=== PATIENT | male | born 1945 | race Two or more races ===

== ENCOUNTER 2025-03-16 10:45 | Inpatient (IN) | payer OTHER ==
[~2025-03-16] VITALS: Ht 170.2 cm; Wt 96.2 kg
--- NOTE | 2025-03-16 11:23 | NUR ---
PTE ALERTA Y ORIENTADO X3, LLEGA CON ORDENES DE ADMISION DIRECTAS PARA SER ADMITIDO POR ANEMIA, BAJO LOS SERVICIOS DEL . SE NELA SV Y SE UBICA
[2025-03-16] MEDS ORDERED: ATORVASTATIN CA10 MG PO (11:24)
[2025-03-16] MEDS ORDERED: KAPSPARGO SPRIN25 MG (11:24)
[2025-03-16] MEDS ORDERED: METFORMIN HCL500 MG (11:25)
[2025-03-16] MEDS ORDERED: QBRELIS1 MG/1 ML (11:25)
[2025-03-16] MEDS ORDERED: AMLODIPINE-OLM1 EAC2 (11:25)
[2025-03-16] MEDS ORDERED: CAROSPIR25 MG/5 ML PO (11:25)
[2025-03-16] MEDS ORDERED: FAMOTIDINE/PF 20 MG/2 ML VIAL IV PUSH SCH (12:30)
[2025-03-16] MEDS ORDERED: AMLODIPINE BESYLATE 10 MG TABLET PO SCH (12:31)
[2025-03-16] MEDS ORDERED: LISINOPRIL 40 MG TABLET PO SCH (12:31)
[2025-03-16] MEDS ORDERED: SPIRONOLACTONE 25 MG TABLET PO SCH (12:32)
[2025-03-16] MEDS ORDERED: METOPROLOL SUCCINATE 25 MG TAB.SR.24H PO SCH (12:32)
[2025-03-16] MEDS ORDERED: hydrALAZINE HCL 20 MG VIAL IV PRN (12:45)
[2025-03-16] MEDS ORDERED: INSULIN LISPRO 1,000 UNIT/10 ML UNITS SUBCUTANEO PRN (12:45)
[2025-03-16] MEDS ORDERED: ACETAMINOPHEN 500 MG GEL..CAP PO PRN (12:45)
[2025-03-16] MEDS ORDERED: FAMOTIDINE/PF 20 MG/2 ML VIAL ONE (13:35)
[2025-03-16 13:39] LABS: BASO % 0.8 % (0.1-1.2); EOS # 0.32 (0.04-0.54); EOS % 4.1 % (0.7-7.0); LYMPH # 1.74 (1.18-3.74); LYMPH % 22.5 % (19.3-53.1); MEAN PLATELET VOLUME 9.90 fl (9.4-12.4); MONO # 0.86 (0.24-0.82); MONO % 11.1 % (4.7-12.5); NEUT # 4.71 (1.56-6.13); NEUT % 61.1 % (34.0-71.1); RED CELL DISTRIBUTION WIDTH 20.9 % (11.6-14.4)
[2025-03-16 14:24] LABS: COVID-19 AG NEGATIVE (NEGATIVE)
[2025-03-16 15:00] VITALS: BP 146/71; O2SAT 96
[2025-03-16] MEDS ORDERED: ATORVASTATIN CALCIUM 40 MG TABLET PO SCH (17:00)
[2025-03-16 17:27] VITALS: BP 154/71; O2SAT 97
[2025-03-17 03:17] VITALS: BP 126/66; O2SAT 95
[2025-03-17 08:00] VITALS: BP 147/80; O2SAT 99
[2025-03-17 16:00] VITALS: BP 130/70; O2SAT 97
[2025-03-17 23:20] LABS: BASO % 0.8 % (0.1-1.2); EOS # 0.38 (0.04-0.54); EOS % 4.5 % (0.7-7.0); LYMPH # 1.62 (1.18-3.74); LYMPH % 19.4 % (19.3-53.1); MEAN PLATELET VOLUME 10.20 fl (9.4-12.4); MONO # 0.94 (0.24-0.82); MONO % 11.2 % (4.7-12.5); NEUT # 5.33 (1.56-6.13); NEUT % 63.9 % (34.0-71.1); RED CELL DISTRIBUTION WIDTH 21.4 % (11.6-14.4)
[2025-03-18 00:42] VITALS: BP 92/60; O2SAT 94
[2025-03-18 08:00] VITALS: BP 139/81; O2SAT 96
[2025-03-18] MEDS ORDERED: METRONIDAZOLE/SODIUM CHLORIDE 500 MG/100 ML PIGGYBACK IV ONE (16:45)
[2025-03-18] MEDS ORDERED: CEFTRIAXONE SODIUM 2,000 MG VIAL IV ONE (16:45)
[2025-03-18] MEDS ORDERED: BUPIVACAINE HCL/PF 0.25% 30ML VIAL InF ONE (16:45)
[2025-03-18] MEDS ORDERED: LIDOCAINE HCL 1%/EPINEPHRINE 20ML VIAL IJ ONE (16:45)
[2025-03-18] MEDS ORDERED: DEXTROSE 50 % IN WATER 0.5 G/ML VIAL IV PRN (18:45)
[2025-03-18] MEDS ORDERED: 0.9 % SODIUM CHLORIDE 1,000 ML IV SCH (18:45)
[2025-03-18] MEDS ORDERED: OxyCODONE HCL 5 MG TABLET (ROXICODONE) PO PRN (18:45)
[2025-03-18] MEDS ORDERED: MORPHINE SULFATE 4 MG/ML CARTRIDGE IV PRN (18:45)
[2025-03-18] MEDS ORDERED: ONDANSETRON HCL 2 MG/ML VIAL IV PRN (18:45)
[2025-03-18] MEDS ORDERED: ACETAMINOPHEN 500 MG GEL..CAP PO SCH (20:00)
[2025-03-18] MEDS ORDERED: MORPHINE SULFATE 4 MG/ML VIAL IV ONE (20:50)
[2025-03-18] MEDS ORDERED: FAMOTIDINE/PF 20 MG/2 ML VIAL IV PUSH SCH (21:00)
[2025-03-18] MEDS ORDERED: SIMETHICONE 125 MG CAPSULE PO SCH (21:00)
[2025-03-18] MEDS ORDERED: MORPHINE SULFATE 5 MG/ML VIAL IV ONE (21:55)
[2025-03-18 23:43] LABS: BASO % 0.1 % (0.1-1.2); EOS # 0.01 (0.04-0.54); EOS % 0.1 % (0.7-7.0); LYMPH # 0.63 (1.18-3.74); LYMPH % 4.1 % (19.3-53.1); MEAN PLATELET VOLUME 9.60 fl (9.4-12.4); MONO # 1.20 (0.24-0.82); MONO % 7.9 % (4.7-12.5); NEUT # 13.29 (1.56-6.13); NEUT % 87.3 % (34.0-71.1); RED CELL DISTRIBUTION WIDTH 21.1 % (11.6-14.4)
[2025-03-19] MEDS ORDERED: GABAPENTIN 300 MG CAPSULE PO SCH (01:00)
[2025-03-19] MEDS ORDERED: METOCLOPRAMIDE HCL 5 MG/ML VIAL IV SCH (01:00)
[2025-03-19 04:35] VITALS: BP 137/70; O2SAT 96
[2025-03-19] MEDS ORDERED: CELECOXIB 200 MG CAPSULE PO SCH (05:00)
[2025-03-19 07:13] LABS: BASO % 0.1 % (0.1-1.2); EOS # 0.01 (0.04-0.54); EOS % 0.1 % (0.7-7.0); LYMPH # 0.79 (1.18-3.74); LYMPH % 5.9 % (19.3-53.1); MEAN PLATELET VOLUME 10.20 fl (9.4-12.4); MONO # 1.15 (0.24-0.82); MONO % 8.5 % (4.7-12.5); NEUT # 11.44 (1.56-6.13); NEUT % 85.0 % (34.0-71.1); RED CELL DISTRIBUTION WIDTH 21.5 % (11.6-14.4)
[2025-03-19 07:58] LABS: BUN CREA RATIO 13.0 (7.0-25.0); CREATININE SERUM 1.68 mg/dL (0.70-1.30); GFR 39.71; GLUCOSE FASTING 121.0 mg/dL (65-100); OSMOLALITY SERUM 276.0 MOSM/KG (275-295)
[2025-03-19 08:00] VITALS: BP 124/66; O2SAT 95
[2025-03-19] MEDS ORDERED: HYOSCYAMINE SULFATE 0.125 MG TAB.SUBL SL SCH (09:00)
[2025-03-19] MEDS ORDERED: LACTOBACILLUS ACIDOPHILUS 1 CAP CAP PO SCH (09:00)
[2025-03-19] MEDS ORDERED: LACTULOSE 20 G/30 ML BLIST.PACK PO SCH (09:00)
[2025-03-19 16:00] VITALS: BP 109/50; O2SAT 94
[2025-03-19] MEDS ORDERED: ENOXAPARIN SODIUM 40 MG/0.4 ML SYRINGE SUBCUTANEO SCH (17:00)
[2025-03-20 02:10] VITALS: BP 113/60; O2SAT 96
[2025-03-20 08:00] VITALS: BP 120/61; O2SAT 95
[2025-03-20] MEDS ORDERED: FAMOTIDINE/PF 20 MG/2 ML VIAL IV PUSH SCH (09:00)
[2025-03-20] MEDS ORDERED: ENOXAPARIN SODIUM 40 MG/0.4 ML SYRINGE SUBCUTANEO SCH (09:00)
== END 2025-03-20 13:37 | disposition home or self-care (01) | DRG 331 ==
LOC: ER 12:18 → SURH 12:35 → SURG 12:35 → SURH 16:05
PROVIDERS: ADMIT Colon & Rectal Surgery; ATTEND Colon & Rectal Surgery
PROC: B246ZZZ Ultrasonography of Right and Left Heart (ICD-10-PCS; 2025-03-16)
PROC: 30233N1 Transfusion of Nonautologous Red Blood Cells into Peripheral Vein, Percutaneous Approach (ICD-10-PCS; 2025-03-16)
PROC: 07BB4ZZ Excision of Mesenteric Lymphatic, Percutaneous Endoscopic Approach (ICD-10-PCS; 2025-03-18)
PROC: 07BC4ZZ Excision of Pelvis Lymphatic, Percutaneous Endoscopic Approach (ICD-10-PCS; 2025-03-18)
PROC: 4A12X4Z Monitoring of Cardiac Electrical Activity, External Approach (ICD-10-PCS; 2025-03-18)
PROC: 0DTF4ZZ Resection of Right Large Intestine, Percutaneous Endoscopic Approach (ICD-10-PCS; principal; 2025-03-18 16:30)
DX: C18.2 Malignant neoplasm of ascending colon (principal); D49.0 Neoplasm of unspecified behavior of digestive system; R59.0 Localized enlarged lymph nodes; D64.89 Other specified anemias; I10 Essential (primary) hypertension; E11.9 Type 2 diabetes mellitus without complications; Z79.84 Long term (current) use of oral hypoglycemic drugs